=== PATIENT | female | born 1995 | race Two or more races ===

== ENCOUNTER 2020-06-17 15:20 | Outpatient (REF) | payer OTHER, SELFPAY ==
[2020-06-17 15:47] LABS: MANUAL DIFF FLAG NO
[2020-06-17 15:55] LABS: Basophils Percent Auto 0.4 % (0-2); Eosinophils Percent Auto 0.7 % (0-4); Hematocrit 36.5 % (37-47); Hemoglobin 12.1 g/dl (12.0-16.0); Imm Gran Abs Auto 0.02 X10*3/uL (0.00-0.03); Imm Gran Pct Auto 0.4 % (0.0-0.4); Lymphocytes Absolute Auto 2.1 X10*3/uL (1.2-4.9); Lymphocytes Percent Auto 46.6 % (20-40); Mean Corpuscular HGB Conc 33.2 g/dl (31.0-35.0); Mean Corpuscular Hemoglobin 30.9 pg (27.0-33.0); Mean Corpuscular Volume 93.4 fL (80-98); Mean Platelet Volume 11.3 fL (9.4-12.3); Monocytes Absolute Auto 0.4 X10*3/uL (0.1-1.2); Monocytes Percent Auto 8.1 % (2-11); Neutrophils Percent Auto 43.8 % (45-73); Platelet Count 267 X10*3/uL (160-400); Red Blood Count 3.91 X10*6/uL (4.20-5.50); Red Cell Distribution Width 12.6 % (11.0-16.0); White Blood Count 4.6 X10*3/uL (4.8-10.8)
[2020-06-17 16:17] LABS: Anion Gap 10 (12-20); Blood Urea Nitrogen 19 mg/dL (9-16); Calcium 9.7 mg/dL (8.4-10.2); Carbon Dioxide 28 mmol/L (22-29); Chloride 103 mmol/L (96-108); Estimated Glomerular Filt Rate > 60; Glucose Random 84 mg/dL (60-115); Sodium 137 mmol/L (135-145)
== END 2020-06-17 15:21 | disposition home or self-care (01) ==
LOC: HO.LAB 15:20
PROVIDERS: PCP Internal Medicine; Visit Provider Internal Medicine
DX: Z00.00 Encounter for general adult medical examination without abnormal findings (principal); R51.9 Headache, unspecified
CPT/HCPCS: 36415; 80048; 85025

== ENCOUNTER 2020-06-28 13:01 | Outpatient (REF) | payer OTHER, SELFPAY ==
--- NOTE | ~2020-06-28 | CT_ITS ---
EXAMINATION: CT HEAD WITHOUT CONTRAST CLINICAL INFORMATION: Dizziness. COMPARISON: Head CT from 09/26/2018. TECHNIQUE: Contiguous axial imaging was performed from the skull base to vertex without intravenous administration of contrast. This CT examination was performed using dose optimization techniques as appropriate, variously including the following: *Automated exposure control *Adjustment of mA and/or kV according to patient size (this includes techniques or standardized protocols for targeted exams where dose is matched to indication/reason for exam; i.e. extremities or head) *Use of iterative reconstruction technique DLP: 582 mGy-cm FINDINGS: There is no evidence of acute intracranial hemorrhage or territorial infarction. No abnormal mass effect or midline shift is seen. Hughes to white matter differentiation is well preserved. No extra-axial fluid collections are identified. The ventricles are normal in size. There is no abnormal attenuation within the brain parenchyma. The osseous structures and soft tissues are normal. The mastoid air cells and visualized portions of the paranasal sinuses are well aerated. CT/CT head/brain wo con IMPRESSION: No acute intracranial pathology.
== END 2020-06-28 13:02 | disposition home or self-care (01) ==
LOC: HO.CT 13:01
PROVIDERS: PCP Internal Medicine; Visit Provider Internal Medicine
DX: R42 Dizziness and giddiness (principal)
CPT/HCPCS: 70450

== ENCOUNTER 2021-09-16 08:10 | Outpatient (REF) | payer OTHER, SELFPAY ==
[2021-09-16 09:39] LABS: HBS Num1 0.03 mIU/mL (0-7.99); ~Hepatitis B Surface Antibody NONREACTIVE (Nonreactive)
[2021-09-18 23:02] LABS: TS Negative Control Passed; TS Panel A 0; TS Panel B 0; TS Positive Control Passed; TSpotTB Negative (Negative)
== END 2021-09-16 08:11 | disposition home or self-care (01) ==
LOC: HO.LAB 08:10
PROVIDERS: PCP Internal Medicine; Visit Provider Internal Medicine
DX: Z11.9 Encounter for screening for infectious and parasitic diseases, unspecified (principal); Z11.1 Encounter for screening for respiratory tuberculosis
CPT/HCPCS: 36415; 86481; 86706

== ENCOUNTER 2024-09-12 03:48 | Emergency (ER) | payer OTHER, SELFPAY ==
--- NOTE | ~2024-09-12 | CT_ITS ---
EXAMINATION: CT ABDOMEN AND PELVIS WITH CONTRAST CLINICAL INFORMATION: Abdominal pain. History of abdominoplasty. COMPARISON: None available. TECHNIQUE: Multidetector volumetric images were obtained from the superior aspect of the liver through the pubic symphysis following administration 85 mL of Omnipaque 350 intravenous contrast. Sagittal and coronal reformatted images were obtained on the technologist's workstation. Oral contrast: No This CT examination was performed using dose optimization techniques as appropriate, variously including the following: *Automated exposure control *Adjustment of mA and/or kV according to patient size (this includes techniques or standardized protocols for targeted exams where dose is matched to indication/reason for exam; i.e. extremities or head) *Use of iterative reconstruction technique DLP: 457 mGy centimeter. FINDINGS: LUNG BASES: No acute airspace disease. LIVER, GALLBLADDER, AND BILIARY TREE: Liver measures 17 cm. Focal decreased enhancement near the falciform ligament likely focal fatty infiltration. No focal mass. Portal veins, hepatic veins and intrahepatic portion of the IVC are patent. Gallbladder is contracted. No pericholecystic fluid collection or gallbladder wall thickening. No intrahepatic or extrahepatic biliary ductal dilatation. PANCREAS: No focal mass. No peripancreatic fluid collection. No main pancreatic ductal dilatation. SPLEEN: 10 cm. No focal mass. ADRENAL GLANDS: No nodular lesions. KIDNEYS AND URETERS: Normal enhancement pattern of the renal parenchyma. No hydronephrosis. No gross mass. No gross nephrolithiasis. BLADDER: Fluid-filled. GASTROINTESTINAL TRACT: Stable within the large intestine. No intestinal obstruction pattern. Gas and fluid-filled mildly prominent small bowel loops. Gas and fluid within the terminal ileum and distal ileal loops. Questionable 2 mm intestinal wall thickening distal ileal loops. No pneumoperitoneum. No ascites. No pneumatosis intestinalis. Appendix is short, retrocecal amount with normal caliber. ABDOMINAL WALL: Postsurgical changes. Edema pattern beneath the skin circumferential fashion throughout the abdomen and pelvis. No fluid collections. LYMPH NODES: Nonspecific mildly prominent, mesenteric and retroperitoneum. VASCULAR: No aneurysm or dissection, abdominal aorta. No gross calcified plaques. PELVIC VISCERA: Soft tissue fullness in the perineum near the vulva/genitalia. OSSEOUS STRUCTURES: Levoconvex curvature of the lower lumbar spine. No acute fracture or listhesis in the axial skeleton. The bony pelvis is intact. The coxofemoral joints are intact with normal alignment. No lytic or blastic lesions. CT/CT abdomen pelvis w IV con IMPRESSION: Consider mild enteritis in the correct clinical settings. Nonspecific soft tissue fullness, perineum region/genitalia. Fleischner guidelines were followed. Electronically signed by: Nain Luke MD 09/12/2024 09:17 AM EDT
[2024-09-12 03:52] VITALS: BP 112/72; PULSE 79; RESP 18; TEMP 36.7; O2SAT 100; BMI 27.2
[2024-09-12 04:16] LABS: Hematocrit 34.7 % (37.0-47.0); Hemoglobin 11.9 g/dl (12.0-16.0); Imm Gran Abs Auto 0.01 X10*3/uL (0.00-0.03); Imm Gran Pct Auto 0.2 % (0.0-0.4); Lymphocytes Absolute Auto 2.0 X10*3/uL (1.2-4.9); MANUAL DIFF FLAG NO; Mean Corpuscular HGB Conc 34.3 g/dl (31.0-35.0); Mean Corpuscular Hemoglobin 30.4 pg (27.0-33.0); Mean Corpuscular Volume 88.5 fL (80.0-98.0); NRBC Abs Auto 0.000 X10*3/uL (0.0-0.012); NRBC Pct Auto 0.0 /100WBC (0.0-0.2); Platelet Count 207 X10*3/uL (160-400); Red Blood Count 3.92 X10*6/uL (4.20-5.50); White Blood Count 4.3 X10*3/uL (4.8-10.8)
[2024-09-12 04:42] LABS: Alanine Aminotransferase 28 U/L (0-31); Albumin Level 4.2 g/dL (3.5-5.0); Alkaline Phosphatase 80 U/L (39-117); Anion Gap 12 (12-20); Aspartate Amino Transferase 21 U/L (5-31); Blood Urea Nitrogen 13 mg/dL (9-16); Calcium 8.6 mg/dL (8.4-10.2); Carbon Dioxide 23 mmol/L (22-29); Chloride 111 mmol/L (96-108); Creatinine Clr Calc Pharmacy 137.5; Estimated Glomerular Filt Rate > 60; Lipase 30 U/L (8-78); Potassium 3.5 mmol/L (3.3-5.1); Sodium 142 mmol/L (135-145); Total Protein 6.9 g/dL (6.5-8.0)
[2024-09-12 05:46] VITALS: BP 105/75; PULSE 77; RESP 16; TEMP 36.7; O2SAT 100
--- NOTE | 2024-09-12 07:22 | ED_ITS ---
HPI - Abdominal Pain General Chief Complaint: Abdominal Pain Stated Complaint: recent tummy tuck 2 months ago having pain Time Seen by Provider: 09/12/24 07:22 Source: patient Mode of arrival: ambulatory Limitations: no limitations History of Present Illness HPI narrative: This is a 28 years old female patient status post abdominoplasty 07/03/2024 in [place] presented to the emergency department with a chief complaint of abdominal discomfort denies any fever chills vomiting. MD elicited complaint: abdominal pain Onset (ago): week(s) Pain Consistency: intermittent Location: diffuse Severity: moderate Quality: cramping Radiation: none Migration to: no migration Exacerbating factors: nothing Relieving factors: nothing Related Data Home Medications ?Medication ?Instructions ?Recorded ?Confirmed acetaminophen 500 mg tablet 500 mg PO Q6H PRN 09/10/20 05/08/22 (Tylenol Extra Strength) Previous Rx's ?Medication ?Instructions ?Recorded minocycline 100 mg capsule 100 mg PO BID #60 caps 09/13 benzoyl peroxide 10 % topical gel 1 appl topical DAILY #90 grams 05/30/22 (Acne Treatment (benzoyl peroxide)) Allergies Allergy/AdvReac Type Severity Reaction Status Date / Time No Known Allergies (No Known Allergy Verified 09/12/24 04:00 Allergies*) Review of Systems Constitutional: Reports no additional constitutional complaints Cardiovascular: Reports no additional cardiovascular complaints Hematologic/Lymphatic: Reports no additional hematologic/lymphatic complaints [facility] Past Medical History [facility] Narrative: Abdominoplasty 07/03/2024 [place] [facility] Medical History Vasovagal reaction Surgical History History of wisdom tooth extraction Family History Family History Father Stroke Mother No problems noted. Family/Other Breast cancer Social History Social History Housing: Apartment Alcohol intake: never Patient Tobacco Use Status: Never used Tobacco Smoked in Last 30 Days: No e-Cigarette/Vaping Use: Never Used Second Hand Smoke Exposure: No Use of substances other than those prescribed or required for medical reasons: No Advance Directives: No Advance Directives Information Provided: Yes service: No Current occupational status: employed Cognitive needs: No Hearing needs: No Vision needs: Yes (glasses) Physical Exam ED Exam Exam: No acute distress Vital Signs: Vital Signs - 24 hr 09/12/24 03:52 09/12/24 05:46 09/12/24 07:36 Temperature 98.1 F 98.1 F 97.6 F Pulse Rate 79 77 81 Respiratory Rate 18 16 16 Blood Pressure 112/72 105/75 102/73 Pulse Oximetry 100 100 100 Oxygen Delivery Method Room Air Room Air Room Air 09/12/24 10:28 Temperature Pulse Rate 75 Respiratory Rate 16 Blood Pressure 101/63 Pulse Oximetry 99 Oxygen Delivery Method Room Air BMI result Body Mass Index 27.2 Const General: cooperative Nutritional Appearance: well nourished Orientation/consciousness: patient oriented x3 HENMT Head: Yes normal to inspection Ears: hearing grossly normal bilaterally General nose exam: Normal external nose present Face and sinus: Yes normal facial exam Mouth: Normal oral and palatal mucosa present Teeth and gingiva: dentition normal Throat: Yes posterior oropharynx normal Neck Neck: Yes normal visual inspection Chest Chest palpation & inspection: normal inspection of the chest Resp Effort & Inspection: normal respiratory effort Auscultation: clear to auscultation bilaterally Cardio Jugular venous distension: no JVD Rate: regular rate Rhythm: regular rhythm GI Other: Inspection: Yes normal to inspection Palpation (GI): Soft to palpation, not firm, nontender and no guarding Percussion: Yes normal to percussion Auscultation: normal bowel sounds Skin General skin exam: no rashes or lesions noted, elasticity normal and turgor normal Lesions: no lesions Rashes: no rashes Neuro General: patient oriented x3 Cranial nerves: Yes CN's II-XII intact bilaterally Extrem General: Yes normal to inspection Medical Decision Making Medical Decision Making MDM Narrative: Patient is here with the abdominal pain we will check labs imaging and reassess 11:19 the workup has been completed a CT scan abdomen and pelvis shows no small- bowel obstruction no colitis no diverticulitis no abscess white count is normal the wound looks well to me there is no evidence of cellulitis I think at this point she can be discharged home she can follow-up with the primary care physician Differential Diagnosis Differential Diagnoses: The differential diagnosis associated with the presentation includes Gastritis/gastroenteritis/small bowel obstruction postop Admission/Observation Consideration of admission/observation: Escalation of care including admission/observation considered Lab Data MDM Lab Attestation statement: I reviewed the patient's lab results. 09/12/24 04:12 09/12/24 04:12 Labs: Lab Results 09/12/24 09/12/24 Range/Units 04:12 10:29 WBC 4.3 L (4.8-10.8) X10*3/uL RBC 3.92 L (4.20-5.50) X10*6/uL Hgb 11.9 L (12.0-16.0) g/dl Hct 34.7 L (37.0-47.0) % MCV 88.5 (80.0-98.0) fL MCH 30.4 (27.0-33.0) pg MCHC 34.3 (31.0-35.0) g/dl RDW 12.5 (11.0-16.0) % Plt Count 207 (160-400) X10*3/uL MPV 10.3 (9.4-12.3) fL Immature Gran % (Auto) 0.2 (0.0-0.4) % Neut % (Auto) 40.9 L (45-73) % Lymph % (Auto) 47.7 H (20-40) % Peach % (Auto) 9.8 (2-11) % Eos % (Auto) 0.9 (0-4) % Baso % (Auto) 0.5 (0-2) % Lymph # (Auto) 2.0 (1.2-4.9) X10*3/uL Peach # (Auto) 0.4 (0.1-1.2) X10*3/uL Eos # (Auto) 0.0 (0.0-0.4) X10*3/uL Baso # (Auto) 0.0 (0.0-0.2) X10*3/uL Abs Immat Gran (auto) 0.01 (0.00-0.03) X10*3/uL Absolute Neuts (auto) 1.8 L (2.0-8.3) x10*3/uL Absolute Nucleated RBC 0.000 (0.0-0.012) X10*3/uL Nucleated RBC % (auto) 0.0 (0.0-0.2) /100WBC Sodium 142 (135-145) mmol/L Potassium 3.5 (3.3-5.1) mmol/L Chloride 111 H (96-108) mmol/L Carbon Dioxide 23 (22-29) mmol/L Anion Gap 12 (12-20) BUN 13 (9-16) mg/dL Creatinine 0.56 (0.5-1.4) mg/dL Estim Creat Clear Calc 137.5 Estimated GFR > 60 Random Glucose 85 (60-115) mg/dL Calcium 8.6 D (8.4-10.2) mg/dL Total Bilirubin 0.3 (0.0-1.0) mg/dL AST 21 (5-31) U/L ALT 28 (0-31) U/L Alkaline Phosphatase 80 (39-117) U/L Total Protein 6.9 (6.5-8.0) g/dL Albumin 4.2 (3.5-5.0) g/dL Lipase 30 (8-78) U/L Beta HCG, Quant < 2 mIU/mL Urine Color Yellow Urine Appearance Clear Urine pH 7.0 (5.0-9.0) Ur Specific [place] >= 1.030 H (1.005-1.025) Urine Protein Negative (Neg-Trace) mg/dL Urine Glucose (UA) Negative (Negative) mg/dL Urine Ketones Negative (Negative) mg/dL Urine Blood Negative (Negative) Urine Nitrite Negative (Negative) Ur Leukocyte Esterase Negative (Negative) Independent Interpretation I performed an independent interpretation of an: CT Scan Radiology Impression Discussion of test interpretation with radiology: I have reviewed the radiologist's reading. Medications Administered Discontinued Medications Generic Name Dose Route Start Last Admin Trade Name Freq PRN Reason Stop Dose Admin Iohexol 100 ml 09/12/24 08:26 09/12/24 08:27 Iohexol 350 Mg/Ml 100 Ml Infus..Btl IV 09/12/24 08:27 85 ml ONCE ONE Administration Discharge Plan Discharge Clinical Impression: Abdominal pain Qualifiers: Abdominal location: generalized Qualified Code(s): R10.84 - Generalized abdominal pain Patient Disposition: Home, Self-Care Instructions: Abdominal Pain (ED) Additional Instructions: Follow-up with your primary care physician return if worse several liquid diet for a couple of days Prescriptions: No Action minocycline 100 mg capsule 100 mg PO BID Qty: 60 0RF benzoyl peroxide [Acne Treatment (benzoyl perox)] 10 % gel 1 appl topical DAILY Qty: 90 0RF acetaminophen [Tylenol Extra Strength] 500 mg tablet 500 mg PO Q6H PRN Referrals: Physician,Unknown J [Primary Care Provider, Medical] - 09/14/24 Print Language: German
[2024-09-12 07:36] VITALS: BP 102/73; PULSE 81; RESP 16; TEMP 36.4; O2SAT 100
--- NOTE | 2024-09-12 08:04 | PC.NURSE ---
Pt resting comfortably in bed, alert and oriented. c/o 6/10 abdominal pain. Abdomen soft, non-distended. Feels like burning on left side of abdomen and pain on lower right side. Incision from tummy tuck is intact. Denies n/v/d. Breathing unlabored. Skin p/w/d. VSS. 20g IV placed in LAC. Pending cat scan.
[2024-09-12] MEDS: iohexoL 350 MG/ML 100 ML INFUS..BTL IV (08:27)
[2024-09-12 10:28] VITALS: BP 101/63; PULSE 75; RESP 16; O2SAT 99
[2024-09-12 10:41] LABS: Appearance Urine Clear; Glucose Urine UA Negative (Negative); PH 7.0 (5.0-9.0); Specific Gravity - Urine >= 1.030 (1.005-1.025)
[2024-09-12 11:36] VITALS: BP 101/63; PULSE 75; RESP 16; TEMP 36.4; O2SAT 99
== END 2024-09-12 11:37 | disposition home or self-care (01) ==
PROVIDERS: Emergency Provider Emergency Medicine
DX: R10.84 Generalized abdominal pain (principal)
CPT/HCPCS: 36415; 74177; 80053; 81003; 83690; 84702; 85025; 99284; Q9967

== ENCOUNTER → 2024-09-12 07:21 | Outpatient (BNV) | payer OTHER, SELFPAY | PROVIDERS: Emergency Provider Emergency Medicine; Visit Provider Radiology Diagnostic Radiology | DX: R10.9 Unspecified abdominal pain (principal); Z98.890 Other specified postprocedural states | CPT/HCPCS: 74177 ==

== ENCOUNTER 2024-09-27 08:43 | Outpatient (AMB) | payer OTHER, SELFPAY ==
--- NOTE | 2024-09-27 08:55 | A.OFFPC_ITS ---
Vital Signs 09/27/24 08:56 Height 5 ft 3 in Weight 155 lb 8 oz BMI 27.5 BP 130/62 Blood Pressure Location Lt brachial Position Sitting Pulse 84 Pulse Source Pulse Oximeter Temp 97.1 F Temp Source Temporal Artery Scan Pulse Oximetry (%) 99 Oxygen Delivery Method Room Air Intake Visit Reasons: headaches Intake Note: Patient is here to follow up on Headaches. 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 Accompanied by: Self / Same As Patient Allergies No Known Allergies (No Known Allergies*) Allergy (Verified 09/27/24 08:56) Medication List - Last Reconciled 09/27/24 by Arian Hernandez MD No Known Home Meds Tobacco use date assessed: 09/27/24 Dental Screening Dental Screen Date: 09/27/24 Did you have a dental visit in the last 12 months?: Yes Did you have a dental problem in the last 6 months where you did not have access to dental care?: No Was dental information given to patient?: Patient has dentist COUNT INCLUDES [facility] Medical History Vasovagal reaction Surgical History History of abdominoplasty History of wisdom tooth extraction Family History Father Stroke Mother No problems noted. Family/Other Breast cancer Social History Housing: Apartment Alcohol intake: never Patient Tobacco Use Status: Never used Tobacco e-Cigarette/Vaping Use: Never Used Second Hand Smoke Exposure: No service: No Current occupational status: employed Cognitive needs: No Hearing needs: No Vision needs: Yes (glasses) Questionnaire PHQ-9 Over the last 2 weeks, how often have you been bothered by any of the following problems? 1. Little interest or pleasure in doing things: not at all 2. Feeling down, depressed, or hopeless: not at all 3. Trouble falling or staying asleep, or sleeping too much: not at all 4. Feeling tired or having little energy: not at all 5. Poor appetite or overeating: not at all 6. Feeling bad about yourself - or that you are a failure or have let yourself or your family down: not at all 7. Trouble concentrating on things, such as reading the newspaper or watching television: not at all 8. Moving or speaking so slowly that other people could have noticed. Or the opposite - being so fidgety or restless that you have been moving around a lot more than usual: not at all 9. Thoughts that you would be better off or of hurting yourself in some way: not at all Total score: 0 Depression Screening Interpretation: Negative Depression Screening Done: Yes Source: Developed by Drs. Jan Keller, Katerin Gonzalez, Mo Fajardo and colleagues, with an educational jigna from [employer]. Thrive Questionnaire Date Thrive assessed: 09/27/24 I am a: Patient What is your living situation today?: I have a steady place to live Within the past 12 months, did the food you bought not last and you didn't have the money to get more?: Often true Within the past 12 months, did you worry whether your food would run out before you got money to buy more?: Never true Do you have trouble paying for medicines?: No Do you have trouble getting transportation to medical appointments?: No Do you have trouble paying your heating and electricity bill?: No Do you have trouble taking care of your child, family member or friend?: No Do you have trouble with day-to-day activities such as bathing, preparing meals, shopping, managing finances, etc.?: No Are you currently unemployed and looking for a job?: Yes Are you interested in more education?: No Please select the resources that you would like help with: None Currently or been in a relationship where the following occur: No concerns reported THRIVE Score: 1 AUDIT C Alcohol Use Questionnaire (AUDIT-C) 1. How often do you have a drink containing alcohol?: Never Total Score: 0 NOEMY-7 AMB Questionnaire NOEMY-7 Date NOEMY - 7 assessed: 09/27/24 Feeling nervous, anxious, or on edge: 0 = Not at all Not being able to stop or control worryin = Not at all Worrying too much about different things: 0 = Not at all Trouble relaxin = Not at all Being so restless that it is hard to sit still: 0 = Not at all Becoming easily annoyed or irritable: 0 = Not at all Feeling afraid as if something awful might happen: 0 = Not at all Total NOEMY-7 score (0-4 normal; 5-9 mild; 10-14 moderate; 15-21 severe): 0 Source: Developed by Drs. Jan Keller, Katerin Gonzalez, Mo Fajardo and colleagues, with an educational jigna from [employer]. Physical exam (Primary Care) Vital Signs: Last Vital Signs Temp 97.1 F 09/27/24 08:56 Pulse 84 09/27/24 08:56 BP 130/62 09/27/24 08:56 Pulse Ox 99 09/27/24 08:56 Oxygen Delivery Method Room Air 09/27/24 08:56 BMI result Body Mass Index 27.5 Tobacco/Smoking Status: Tobacco use Status Tobacco use date assessed 09/27/24 09/27/24 09:05 Patient Tobacco Use Status Never used Tobacco 09/27/24 09:05 e-Cigarette/Vaping Use Never Used 09/27/24 09:05 PHQ-9: PHQ-9 Score PHQ-9: Total score 0 09/27/24 09:05 Depression Screening Interpretation: Negative Thrive Assessment: Date of Thrive Assessment Date Thrive assessed 09/27/24 09/27/24 09:05 Currently or been in a relationship where the following occur: No concerns repo rted Coding Level of Care Code Est Pt Prev Care [id number]([id number]) Diagnoses Annual physical exam Z00.00 Assessment & Plan Assessment & Plan (1) Annual physical exam: Code(s): Z00.00 - Encounter for general adult medical examination without abnormal findings Category: Medical Plan History of Present Illness - The patient is a 28-year-old female presenting with headaches and postoperative pain following abdominoplasty and muscle repair. - Headaches: She experiences very tense headaches that necessitate a quiet environment and uses Excedrin for relief. - Postoperative pain: Following a tummy tuck and muscle repair on July 03, she reports intermittent pain, especially when sitting for long periods, and a sensation of incision tightening. 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 Review of Systems - Neurological: Reports very tense headaches requiring a quiet environment. Denies other neurological symptoms. - Gastrointestinal: Reports postoperative pain with a sensation of incision tightening. Denies issues with appetite or bowel movements. Physical Exam General: Cooperative and healthy appearing Nutritional Appearance: Well nourished Orientation/consciousness: Patient oriented x3 Limitations: No limitations Head: Normal to inspection General: Appearance normal, both eyes and all related structures Neck: Normal visual inspection Chest: Normal palpation of entire chest wall Respiratory: N ormal respiratory effort Neurology: Patient oriented x3, reports headaches that are very tense and require a quiet environment. Results Plan 1. Headaches - Continue current management with Excedrin as needed for headache relief. 2. Postoperative Pain Following Abdominoplasty And Muscle Repair - Plan to perform an abdominal examination after removal of the compression garment to assess for any fluid accumulation. - Consideration of an ultrasound if physical examination suggests fluid accumulation. Discussion Notes I discussed with the patient the current management of her headaches with Excedrin and the importance of maintaining a quiet environment during episodes. Ultrasound not necessary at this moment. Patient Instructions - Continue taking Excedrin as needed for headache relief. - Prepare for an abdominal examination by removing the compression garment as discussed.
[2024-09-27 08:56] VITALS: BP 130/62; PULSE 84; TEMP 36.2; O2SAT 99; BMI 27.5
== END 2024-09-27 16:06 | disposition home or self-care (01) ==
LOC: HO.HMCH 08:43
PROVIDERS: Visit Provider Internal Medicine
DX: Z00.00 Encounter for general adult medical examination without abnormal findings (principal)

== ENCOUNTER → 2024-09-27 08:43 | Outpatient (BNVA) | payer OTHER, SELFPAY | PROVIDERS: Visit Provider Internal Medicine | DX: Z00.00 Encounter for general adult medical examination without abnormal findings (principal); R51.9 Headache, unspecified; G89.18 Other acute postprocedural pain | CPT/HCPCS: 99395 ==

== ENCOUNTER 2024-11-15 13:46 | Outpatient (AMB) | payer OTHER, SELFPAY ==
--- NOTE | 2024-11-15 13:51 | MHC.PC.OV ---
Vital Signs 11/15/24 13:52 Height 5 ft 3 in Weight 159 lb 8 oz BMI 28.3 BP 130/66 Blood Pressure Location Lt brachial Position Sitting Temp 97.1 F Temp Source Temporal Artery Scan Intake Visit Reasons: stomach swollen f/u Intake Note: Patient is here to follow up on swelling of stomach and burning sensation. 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 Family/Other Breast cancer Social History Housing: Apartment Alcohol intake: never Patient Tobacco Use Status: Never used Tobacco e-Cigarette/Vaping Use: Never Used Second Hand Smoke Exposure: No service: No Current occupational status: employed Cognitive needs: No Hearing needs: No Vision needs: Yes (glasses) Questionnaire Thrive Questionnaire Date Thrive assessed: 09/27/24 I am a: Patient What is your living situation today?: I have a steady place to live Within the past 12 months, did the food you bought not last and you didn't have the money to get more?: Often true Within the past 12 months, did you worry whether your food would run out before you got money to buy more?: Never true Do you have trouble paying for medicines?: No Do you have trouble getting transportation to medical appointments?: No Do you have trouble paying your heating and electricity bill?: No Do you have trouble taking care of your child, family member or friend?: No Do you have trouble with day-to-day activities such as bathing, preparing meals, shopping, managing finances, etc.?: No Are you currently unemployed and looking for a job?: Yes Are you interested in more education?: No Please select the resources that you would like help with: None Currently or been in a relationship where the following occur: No concerns reported THRIVE Score: 1 NOEMY-7 AMB Questionnaire NOEMY-7 Date NOEMY - 7 assessed: 09/27/24 Source: Developed by Drs. Jan Keller, Katerin Gonzalez, Mo Fajardo and colleagues, with an educational jigna from [employer]. Physical exam (Primary Care) Vital Signs: Last Vital Signs Temp 97.1 F 11/15/24 13:52 BP 130/66 11/15/24 13:52 BMI result Body Mass Index 28.3 Tobacco/Smoking Status: Tobacco use Status Tobacco use date assessed 11/15/24 11/15/24 13:57 Patient Tobacco Use Status Never used Tobacco 11/15/24 13:57 e-Cigarette/Vaping Use Never Used 11/15/24 13:57 Thrive Assessment: Date of Thrive Assessment Date Thrive assessed 09/27/24 11/15/24 13:57 Currently or been in a relationship where the following occur: No concerns reported Coding Level of Care Code Est Pt Level 4 (77982) Complex EM visit Add On G2211 Diagnoses Abdominal pain R10.9 Assessment & Plan Assessment & Plan (1) Abdominal pain: Code(s): R10.9 - Unspecified abdominal pain Category: Medical Plan: Her symptoms are due to the surgery she had for panniculectomy. Patient is worried that she could have intra-abdominal fluid and is requesting an ultrasound. I have ordered the same. Plan History of Present Illness - The patient is a 29-year-old female presenting with concerns of abdominal inflammation and burning sensation. - Reports persistent inflammation and burning sensation in the abdominal area, prompting medical evaluation. - Describes the sensation as burning and localized from the mid-abdomen downwards. - Concerned about possible fluid retention, feeling there might be liquid accumulation. - Undergoing lymphatic massages once a week in [place] due to limited local options. - Previously wore bandages and a compression garment (Faja) to manage the condition, removed for examination. Social History - The patient travels to [place] weekly for lymphatic massages due to limited local availability. Review of Systems - Gastrointestinal: Reports burning sensation in the abdominal area. Denies other gastrointestinal symptoms. Physical Exam General: Cooperative and healthy appearing Nutritional Appearance: Well nourished Orientation/consciousness: Patient oriented x3 Limitations: No limitations Head: Normal to inspection General: Appearance normal, both eyes and all related structures Neck: Normal visual inspection Chest: Normal palpation of entire chest wall Respiratory: Normal respiratory effort Neurology: Patient oriented x3 Results Plan Discussion Notes Patient Instructions
[2024-11-15 13:52] VITALS: BP 130/66; TEMP 36.2; BMI 28.3
== END 2024-11-15 14:38 | disposition home or self-care (01) ==
LOC: HO.HMCH 13:47
PROVIDERS: Visit Provider Internal Medicine
DX: R10.9 Unspecified abdominal pain (principal)

== ENCOUNTER → 2024-11-15 13:46 | Outpatient (BNVA) | payer OTHER, SELFPAY | PROVIDERS: Visit Provider Internal Medicine | DX: R10.9 Unspecified abdominal pain (principal) | CPT/HCPCS: 99212 ==

== ENCOUNTER 2024-12-15 23:33 | Emergency (ER) | payer OTHER, SELFPAY ==
[2024-12-15 23:35] VITALS: BP 103/68; PULSE 91; RESP 18; TEMP 36.4; O2SAT 98; BMI 27.1
[2024-12-16 00:08] LABS: MANUAL DIFF FLAG NO
[2024-12-16 00:09] LABS: Hematocrit 33.3 % (37.0-47.0); Hemoglobin 11.1 g/dl (12.0-16.0); Imm Gran Abs Auto 0.02 X10*3/uL (0.00-0.03); Imm Gran Pct Auto 0.3 % (0.0-0.4); Lymphocytes Absolute Auto 2.2 X10*3/uL (1.2-4.9); Mean Corpuscular HGB Conc 33.3 g/dl (31.0-35.0); Mean Corpuscular Hemoglobin 29.5 pg (27.0-33.0); Mean Corpuscular Volume 88.6 fL (80.0-98.0); NRBC Abs Auto 0.000 X10*3/uL (0.0-0.012); NRBC Pct Auto 0.0 /100WBC (0.0-0.2); Platelet Count 222 X10*3/uL (160-400); Red Blood Count 3.76 X10*6/uL (4.20-5.50); White Blood Count 5.9 X10*3/uL (4.8-10.8)
--- NOTE | 2024-12-16 00:10 | ED_ITS ---
HPI - Nausea/Vomiting/Diarrhea General Chief complaint: Nausea/Vomiting/Diarrhea Stated complaint: Upset stomach, blood in stool Time Seen by Provider: 12/15/24 23:54 History of Present Illness ED Provider: Brad Lamb MD HPI Narrative: 29-year-old female nausea vomiting diarrhea reports bright red blood stool. Abdominal passed the history, hemorrhoid history Related Data Home Medications ?Medication ?Instructions ?Recorded ?Confirmed No Known Home Meds 09/27/24 09/27/24 Allergies Allergy/AdvReac Type Severity Reaction Status Date / Time No Known Allergies (No Known Allergy Verified 12/15/24 23:39 Allergies*) PMFSH Past Medical History Medical History Vasovagal reaction Surgical History History of abdominoplasty History of wisdom tooth extraction Family History Family History Father Stroke Mother No problems noted. Family/Other Breast cancer Social History Social History Housing: Apartment Alcohol intake: never Patient Tobacco Use Status: Never used Tobacco Smoked in Last 30 Days: No e-Cigarette/Vaping Use: Never Used Second Hand Smoke Exposure: No Use of substances other than those prescribed or required for medical reasons: No Advance Directives: No Advance Directives Information Provided: No Do you have a plan to hurt others: No Plan Patient : No service: No Current occupational status: employed Cognitive needs: No Hearing needs: No Vision needs: Yes (glasses) Physical Exam 2 Exam: Exam: EXAM: Gen: Alert, awake, well appearing, well hydrated. Head: Atraumatic Eyes: Anicteric, Normal conjunctiva. ENT: Moist mucosa, no pallor. ? Neck: Supple. Skin: ?No observable rash or bruising on exposed or examined skin Respiratory: Breathing comfortably, No distress.Clear to auscultation bilaterally, symmetric chest expansion, No wheeze, rales, ronchi. Cardiovascular: Regular rate and rhythm. No murmurs or rub. Well perfused periphery, warm extremities. No edema. ? Abdominal: No focal tenderness. Soft, no objective distension. No palpable masses or obvious organomegaly. ?No guarding, no rebound tenderness or other peritoneal findings. Patient declined a rectal exam which I offered with a social insurance analyst : No flank tenderness. Neuro: Alert. Gross movement of all extremities intact. ? Psych: Calm. Cooperative. MSK: No grossly visible deformity. Vital signs: See flowsheet Vital Signs: Vital Signs: Last Vital Signs Temp 97.5 F 12/16/24 00:32 Pulse 91 12/16/24 00:32 Resp 18 12/16/24 00:32 BP 103/68 12/16/24 00:32 Pulse Ox 98 12/16/24 00:32 O2 Del Method Room Air 12/16/24 00:32 BMI result Body Mass Index 27.1 Medical Decision Making Medical Decision Making MDM Narrative: Medical Decision Makin-year-old female with nausea vomiting diarrhea history hemorrhoid. Reporting a bright red blood mixed with stool over 2 bowel movements the past 2 days. Patient has a history of tummy tuck no internal surgeries. She does note that she has had external hemorrhoids. Diarrhea nausea last week she felt like she may have had food-borne illness of some kind that resolved. Currently not nauseous no fever. No anticoagulants Preliminary Favored Differential Diagnosis: Hemorrhoid internal external, colitis among additional considered etiologies Testing Interpreted Independently: ?See below for details Radiology or Lab testing Results Reviewed: ?See below for details Consults: ?See below for details Independent Historians/External Chart Reviews: ?See below for details Social Determinants of Health Impacting MDM/Planning: ?See below for details Lab Data 12/15/24 23:45 12/15/24 23:45 Labs: Lab Results 12/15/24 Range/Units 23:45 WBC 5.9 (4.8-10.8) X10*3/uL RBC 3.76 L (4.20-5.50) X10*6/uL Hgb 11.1 L (12.0-16.0) g/dl Hct 33.3 L (37.0-47.0) % MCV 88.6 (80.0-98.0) fL MCH 29.5 (27.0-33.0) pg MCHC 33.3 (31.0-35.0) g/dl RDW 13.2 (11.0-16.0) % Plt Count 222 (160-400) X10*3/uL MPV 11.0 (9.4-12.3) fL Immature Gran % (Auto) 0.3 (0.0-0.4) % Neut % (Auto) 51.5 (45-73) % Lymph % (Auto) 36.7 (20-40) % Payette % (Auto) 10.6 (2-11) % Eos % (Auto) 0.7 (0-4) % Baso % (Auto) 0.2 (0-2) % Lymph # (Auto) 2.2 (1.2-4.9) X10*3/uL Payette # (Auto) 0.6 (0.1-1.2) X10*3/uL Eos # (Auto) 0.0 (0.0-0.4) X10*3/uL Baso # (Auto) 0.0 (0.0-0.2) X10*3/uL Abs Immat Gran (auto) 0.02 (0.00-0.03) X10*3/uL Absolute Neuts (auto) 3.0 (2.0-8.3) x10*3/uL Absolute Nucleated RBC 0.000 (0.0-0.012) X10*3/uL Nucleated RBC % (auto) 0.0 (0.0-0.2) /100WBC Sodium 140 (135-145) mmol/L Potassium 3.5 (3.3-5.1) mmol/L Chloride 108 (96-108) mmol/L Carbon Dioxide 26 (22-29) mmol/L Anion Gap 10 L (12-20) BUN 17 H (9-16) mg/dL Creatinine 0.55 (0.5-1.4) mg/dL Estim Creat Clear Calc 138.5 Estimated GFR > 60 Random Glucose 87 (60-115) mg/dL Calcium 9.0 (8.4-10.2) mg/dL Total Bilirubin 0.3 (0.0-1.0) mg/dL AST 22 (5-31) U/L ALT 29 (0-31) U/L Alkaline Phosphatase 91 (39-117) U/L Total Protein 7.3 (6.5-8.0) g/dL Albumin 4.3 (3.5-5.0) g/dL Lipase 43 (8-78) U/L Discharge Plan Discharge Clinical Impression: BRBPR (bright red blood per rectum) Patient Disposition: Home, Self-Care Instructions: Rectal Bleeding (ED) Additional Instructions: We offered to perform a rectal examination to evaluate for hemorrhoids or other masses or causes of bleeding you had declined this. You had stable reassuring lab work including blood counts. Your abdominal exam was reassuring. We think you need to follow up with Gastroenterology. As we discussed if you develop severe or rapid blood in your stool you will need to come back for re-evaluation and assessment by Gastroenterology and/or colonoscopy. Prescriptions: No Action No Known Home Meds Interventions: ED Discharge Assessment Last Done: 12/16/24 00:31 Discharge Date/Time: 12/16/24 00:38 Print Language: Azeri
[2024-12-16 00:27] LABS: Alanine Aminotransferase 29 U/L (0-31); Albumin Level 4.3 g/dL (3.5-5.0); Alkaline Phosphatase 91 U/L (39-117); Anion Gap 10 (12-20); Aspartate Amino Transferase 22 U/L (5-31); Blood Urea Nitrogen 17 mg/dL (9-16); Calcium 9.0 mg/dL (8.4-10.2); Carbon Dioxide 26 mmol/L (22-29); Chloride 108 mmol/L (96-108); Creatinine Clr Calc Pharmacy 138.5; Estimated Glomerular Filt Rate > 60; Lipase 43 U/L (8-78); Potassium 3.5 mmol/L (3.3-5.1); Sodium 140 mmol/L (135-145); Total Protein 7.3 g/dL (6.5-8.0)
[2024-12-16 00:31] VITALS: BP 103/68; PULSE 91; RESP 18; TEMP 36.4; O2SAT 98
[2024-12-16 00:32] VITALS: BP 103/68; PULSE 91; RESP 18; TEMP 36.4; O2SAT 98
== END 2024-12-16 00:38 | disposition home or self-care (01) ==
PROVIDERS: Emergency Provider Emergency Medicine
DX: K62.5 Hemorrhage of anus and rectum (principal); R19.7 Diarrhea, unspecified
CPT/HCPCS: 36415; 80053; 83690; 85025; 99283; 99284

== ENCOUNTER 2025-01-05 08:50 | Outpatient (REF) | payer SELFPAY ==
--- NOTE | ~2025-01-05 | US_ITS ---
CLINICAL HISTORY: R10.9 - S P SURGERY, CHECK FOR FREE FLUID IN ABD --- Additional Notes or Special Instructions: To check for free fluid in the abdomen. Post surgery US abdomen limited Comparison: CT/SR - CT ABDOMEN PELVIS WITH IV CONTRAST - 09/12/24 08:19 EDT Findings: No free fluid in the 4 abdominal quadrants. IMPRESSION: No free fluid in the abdomen. This document has been electronically signed by: Tamara Cruz MD on 01/05/2025 19:41:29
== END 2025-01-05 08:51 | disposition home or self-care (01) ==
LOC: HO.HMGCX 08:50
PROVIDERS: PCP Internal Medicine; Visit Provider Internal Medicine
DX: R10.9 Unspecified abdominal pain (principal)
CPT/HCPCS: 76705

== ENCOUNTER → 2025-01-05 08:55 | Outpatient (BNV) | payer SELFPAY | PROVIDERS: PCP Internal Medicine; Visit Provider Student in an Organized Health Care Education/Training Program | DX: R10.9 Unspecified abdominal pain (principal) | CPT/HCPCS: 76705 ==